=== PATIENT | male | born 1945 | race Caucasian/White ===

== ENCOUNTER 2018-08-04 15:27 | Outpatient (CLI) | payer MEDICARE, BC ==
--- NOTE | 2018-08-04 17:37 | MRI ---
MRI LUMBAR SPINE NONCONTRAST: 08/04/18 HISTORY: Low back pain with right leg radiculopathy. FINDINGS: The conus medullaris has a normal appearance. Desiccation of all of the intervertebral discs. Moderat e multilevel discogenic end plate changes within the bone marrow. Motion artifact obscures detail. T12-L1: Mild disc bulge. Osteophytosis of the facets. Central canal and neural foramina are patent. L1-L2: Mild disc space narrowing. Mild disc bulge. Circumferential degenerative changes with mild luis fernando nosis of the central canal and each neural foramen. L2-3: Mild disc space narrowing. Posterior disc bulge and circumferential degenerative changes. Moder ate stenosis of the central canal and each neural foramen. L3-4: Disc space narrowing. Posterior disc bulge. Circumferential degenerative changes with severe st enosis of the central canal. Moderate to severe stenosis of each neural foramen. L4-5: Disc space narrowing. Minimal degenerative spondylolisthesis. Posterior disc bulge. Circumferen tial degenerative changes with very severe stenosis of the central canal and severe stenosis of each neural foramen. L5-S1: Mild disc space narrowing. Posterior disc bulge. Thecal sac is patent. Prominent degenerative changes with severe bilateral foraminal stenoses. IMPRESSION: Prominent multilevel degenerative changes throughout the lumbar spine as detailed above. Central margi l stenoses most severe at the L4-5 level. Foraminal stenoses most severe at the lowest two levels. POS: [facility]
== END 2018-08-04 15:28 | disposition home or self-care (01) ==
LOC: TBSIIMAG 15:27
PROVIDERS: ATTEND Orthopaedic Surgery
DX: M25.361 Other instability, right knee (principal); M47.816 Spondylosis without myelopathy or radiculopathy, lumbar region; M48.061 Spinal stenosis, lumbar region without neurogenic claudication
CPT/HCPCS: 72148

== ENCOUNTER 2018-12-17 09:35 | Outpatient (CLI) | payer MEDICARE, BC ==
[2018-12-17 11:43] LABS: Hemoglobin 14.5 g/dL (14.0-18.0); Mean Corpuscular HGB CONC 32.6 g/dL (32.0-36.0); Mean Corpuscular Hemoglobin 31.1 pg (27.0-31.0); Mean Corpuscular Volume 95.4 fL (78.0-98.0); Mean Platelet Volume 5.9 fL (7.4-10.4); Platelet Count 274 thou/uL (130-400); RBC Distribution Width 12.8 % (11.5-14.5); Red Blood Cell (RBC) Count 4.65 mill/uL (4.70-6.10); White Blood Cell (WBC) Count 4.8 thou/uL (4.8-10.8)
[2018-12-17 11:46] LABS: INR-International Normal Ratio 0.9; PTT 27.7 SEC (22.9-36.1); Prothrombin Time 12.6 SEC (12.0-14.7)
[2018-12-17 12:07] LABS: Anion Gap 13 mmol/L (10-20); BUN (Urea Nitrogen) 13 mg/dL (8.4-25.7); Calc. Creatinine Clearance 0 mL/min (70-130); Calcium 9.6 mg/dL (7.8-10.44); Carbon Dioxide 26 mmol/L (23-31); Chloride 105 mmol/L (98-107); Estimated GFR-MDRD Greater than 90; Glucose 94 mg/dL (83-110); Potassium 4.5 mmol/L (3.5-5.1); Sodium 139 mmol/L (136-145)
== END 2018-12-17 09:36 | disposition home or self-care (01) ==
LOC: LABBT 09:35
PROVIDERS: ATTEND Surgery
DX: Z01.812 Encounter for preprocedural laboratory examination (principal); M48.061 Spinal stenosis, lumbar region without neurogenic claudication
CPT/HCPCS: 80048; 85027; 85610; 85730

== ENCOUNTER 2018-12-24 05:58 | Day surgery (SDC) | payer MEDICARE, BC ==
[2018-12-24] MEDS ORDERED: Thrombin 5000 UNITS/5 ML VIAL ONE ×2 (06:34→10:03)
[2018-12-24] MEDS ORDERED: Sodium Chloride 0.9% 10 ML ONE (06:34)
[2018-12-24] MEDS ORDERED: Fentanyl 100 MCG/2 ML VIAL ONE ×6 (07:22→14:10)
[2018-12-24] MEDS ORDERED: Levofloxacin 500 mg/D5W 100 ml Premix Bag ONE (07:23)
[2018-12-24] MEDS ORDERED: Clindamycin/D5W 900 mg/50 ml Premix Bag ONE (07:23)
[2018-12-24] MEDS ORDERED: Albumin 5% 500 ML ONE (10:14)
[2018-12-24] MEDS ORDERED: Meperidine HCl/PF 25 MG/ML VIAL SLOW IVP PRN (10:44)
[2018-12-24] MEDS ORDERED: PACU-Morphine 4MG/ML VIAL SLOW IVP PRN (10:44)
[2018-12-24] MEDS ORDERED: HYDROmorphone 2 MG/ML VIAL SLOW IVP PRN (10:44)
[2018-12-24] MEDS ORDERED: Promethazine HCl 25 MG/ML VIAL IM PRN (10:44)
[2018-12-24] MEDS ORDERED: Promethazine HCl 25 MG/ML VIAL SLOW IVP PRN (10:44)
[2018-12-24] MEDS ORDERED: Morphine Sulfate 2 MG/ML SYRINGE SLOW IVP PRN (10:44)
[2018-12-24] MEDS ORDERED: Ondansetron HCl/PF 4 MG/2 ML Vial IVP PRN (10:44)
[2018-12-24] MEDS ORDERED: Morphine 4 MG/ML VIAL SLOW IVP PRN (12:09)
[2018-12-24] MEDS ORDERED: Fleet Enema 133 ML BOT PR PRN (12:09)
[2018-12-24] MEDS ORDERED: Milk Of Magnesia 30 ML UDCUP PO PRN (12:09)
[2018-12-24] MEDS ORDERED: Bisacodyl 10 MG SUPP PR PRN (12:09)
[2018-12-24] MEDS ORDERED: Promethazine HCl 25 MG/ML VIAL IM/IV PRN (12:09)
[2018-12-24] MEDS ORDERED: Mag-Al 1200 mg/1200 mg/30 ML UDCUP PO PRN (12:09)
[2018-12-24] MEDS ORDERED: Acetaminophen 325 MG TAB PO PRN (12:09)
[2018-12-24] MEDS: Sodium Chloride 0.9% 1,000 ML IV SCH (13:18)
[2018-12-24 15:29] VITALS: BMI 36.8
[2018-12-24] MEDS: Clindamycin/D5W 900 MG in Premix Bag 1 BAG IVPB SCH ×2 (16:32→23:34)
[2018-12-24] MEDS: HYDROcodone/Acetaminophen 7.5/325 mg Tablet PO PRN ×2 (18:00→23:32)
[2018-12-24] MEDS: tiZANidine HCl 4 MG TAB PO PRN (18:02)
[2018-12-24] MEDS: Ezetimibe 10 MG TAB PO SCH (20:22)
[2018-12-24] MEDS: Losartan 25 MG TAB PO SCH (20:22)
[2018-12-24] MEDS: Atorvastatin Calcium 40 MG TAB PO SCH (20:22)
[2018-12-24] MEDS: Acetaminophen/Codeine 30-300mg Tablet PO PRN (21:22)
[2018-12-25] MEDS: Sodium Chloride 0.9% 1,000 ML IV SCH ×2 (01:09→18:04)
[2018-12-25] MEDS: traMADol HCl 50 MG TAB PO PRN (02:58)
[2018-12-25] MEDS: Acetaminophen/Codeine 30-300mg Tablet PO PRN ×2 (02:59→20:21)
[2018-12-25] MEDS: HYDROcodone/Acetaminophen 7.5/325 mg Tablet PO PRN ×4 (05:01→21:59)
[2018-12-25 05:57] LABS: Hemoglobin 11.1 g/dL (14.0-18.0); Platelet Count 208 thou/uL (130-400)
--- NOTE | 2018-12-25 08:23 | OP ---
DATE OF PROCEDURE: 12/24/2018 LOCATION: OR 12. GUIDE DOMESTIC TOUR: Edwige. CHIEF COMPLAINT: Multilevel lumbar stenosis with low back and leg pain. POSTPROCEDURE DIAGNOSIS: Multilevel lumbar stenosis with low back and leg pain. PROCEDURES PERFORMED: L1-L2, L2-L3, L3-L4, L4-L5, L5-S1 laminectomies, partial facetectomies, and foraminotomies over L1, L2, L3, L4, L5, and S1 nerve roots bilaterally. DESCRIPTION OF PROCEDURE: After informed consent was obtained from the patient, the patient was brought to the OR. Proper patient, pause, and identification were carried out. He was then placed under excellent general endotracheal anesthesia and positioned prone on the OR table. All appropriate points were padded. We identified the L1 all the way down to S1 dorsal spines and lamina, and a linear parviz was made over this area. This region was sterilely cleansed, prepared, and draped. Proper patient, pause, and identification were carried out. The wound was then opened with combination of sharp, monopolar, and blunt dissection. We exposed the L1, L2, L3, L4, L5, and S1 dorsal spines and lamina, and localization film confirmed our area of interest. We then performed L1, L2, L3, L4, L5, and S1 laminectomies, partial facetectomies, and foraminotomies with excellent decompression of common dural tube and the nerve roots. Copious irrigation occurred throughout as did maximizing hemostasis. The wound was then closed in anatomic layers following sprinkling of the vancomycin powder. The patient was then emerged from anesthesia. Job ID: [id number]
--- NOTE | 2018-12-25 10:53 | PRG ---
DATE OF SERVICE: 12/25/2018 This is Alf Gibbons PA-C dictating a report for Arron Cohen MD. This is a postoperative recheck. Mr. Perez is now postoperative day #1 having undergone multilevel lumbar laminectomies. The patient states overall he is doing well. He is walking much better and states that he has no leg pain. He does have some incisional back pain. In order to help improve his mobility, he requires an another overnight stay in the hospital. He will likely meet criteria for discharge tomorrow. Today, he has good strength in his bilateral lower extremities with intact sensation to light touch throughout. Physical therapy will come by to work with the patient again to improve his mobility. He is doing very well in regard to his pain control, and both he and his were pleased with his outcome postoperatively. His prescriptions have been sent electronically to his Pharmacy. We will plan for discharge tomorrow. Job ID: [id number]
[2018-12-25] MEDS: tiZANidine HCl 4 MG TAB PO PRN ×2 (14:06→22:00)
[2018-12-25] MEDS: Losartan 25 MG TAB PO SCH (20:18)
[2018-12-25] MEDS: Atorvastatin Calcium 40 MG TAB PO SCH (20:18)
[2018-12-25] MEDS: Ezetimibe 10 MG TAB PO SCH (20:18)
[2018-12-26] MEDS: HYDROcodone/Acetaminophen 7.5/325 mg Tablet PO PRN (03:19)
[2018-12-26] MEDS: Sodium Chloride 0.9% 1,000 ML IV SCH (05:20)
[2018-12-26] MEDS: tiZANidine HCl 4 MG TAB PO PRN (06:34)
--- NOTE | 2018-12-26 09:52 | DIS ---
DATE OF ADMISSION: 12/24/2018 DATE OF DISCHARGE: 12/26/2018 Mr. Perez is a 73-year-old man admitted by Dr. Arron Cohen to [facility] on 12/24/2018 and was subsequently discharged on 12/26/2018. ADMISSION DIAGNOSIS: Status post lumbar laminectomy. DISCHARGE DIAGNOSIS: Status post lumbar laminectomy. HOSPITAL COURSE: Mr. Perez did very well during the course of his stay with early limited mobility that progressed rather rapidly. Consults for physical therapy. No other lab work or imaging studies were done. He was discharged in good condition to home with outpatient followup planned. Job ID: [id number]
[2018-12-26] MEDS: traMADol HCl 50 MG TAB PO PRN (11:18)
[2018-12-26 12:09] VITALS: BP 169/80; TEMP 99.1
== END 2018-12-26 13:24 | disposition home or self-care (01) ==
LOC: SDC 05:58 → SJJU 13:11 → SDC 12-26 13:24
PROVIDERS: ATTEND Surgery
PROC: 01NB0ZZ Release Lumbar Nerve, Open Approach (ICD-10-PCS; principal; 2018-12-24)
DX: M48.061 Spinal stenosis, lumbar region without neurogenic claudication (principal); I25.110 Atherosclerotic heart disease of native coronary artery with unstable angina pectoris; I10 Essential (primary) hypertension; E78.00 Pure hypercholesterolemia, unspecified; E66.9 Obesity, unspecified; Z68.36 Body mass index [BMI] 36.0-36.9, adult; Z79.82 Long term (current) use of aspirin; Z79.899 Other long term (current) drug therapy; Z88.0 Allergy status to penicillin; Z95.5 Presence of coronary angioplasty implant and graft
CPT/HCPCS: 63047; 63048 ×4; 76000; 85014; 85018; 85049; 94640; 97110; 97116; 97139 ×3; P9045; 36415; J0131; J1956; J2270; J3010; J3370; J3490; J7620

== ENCOUNTER 2019-08-16 10:07 | Outpatient (CLI) | payer MEDICARE, BC ==
--- NOTE | 2019-08-16 13:24 | MRI ---
CERVICAL SPINE MRI WITHOUT CONTRAST: HISTORY: Neck pain and headache. COMPARISON: None. FINDINGS: Cervical fusion changes at C6-C7 with associated metallic susceptibility artifact. Straightening of cervical lordosis may be due to patient position, muscle spasm, or cervical fusion. No significant S TIR hyperintensity to suggest vertebral body edema or ligamentous injury. Visualized brain parenchym a, cervicomedullary junction, cervical cord, and the upper thoracic cord have a normal size and signa l intensity. C2-C3: No significant central canal stenosis. Mild bilateral foraminal narrowing due to uncovertebr al hypertrophy. C3-C4: Broad-based disk bulge abuts the thecal sac. Mild central canal stenosis. Mild to moderate bilateral foraminal narrowing due to uncovertebral hypertrophy. C4-C5: Broad-based disk bulge abuts the thecal sac. Mild central canal stenosis. Right neural fora men is patent. Mild left foraminal narrowing due to uncovertebral hypertrophy. C5-C6: Broad-based disk-osteophyte complex abuts the thecal sac. Subarachnoid space of the face. T here is deformity of the cervical cord without cord signal abnormality. Moderate central canal steno sis. Moderate bilateral foraminal narrowing due to uncovertebral hypertrophy. C6-C7: No significant central canal stenosis. Neural foramen are patent. C7-T1: No significant central canal stenosis. Neural foramen are patent. IMPRESSION: 1. Cervical fusion at C6-C7. 2. Moderate central canal stenosis and moderate bilateral foraminal narrowing at C5-C6. 3. Degenerative change at C3-C4 as described above. POS: [facility]
== END 2019-08-16 10:08 | disposition home or self-care (01) ==
LOC: TBSIIMAG 10:07
PROVIDERS: ATTEND Family Medicine
DX: M47.22 Other spondylosis with radiculopathy, cervical region (principal); M48.02 Spinal stenosis, cervical region; Z98.1 Arthrodesis status
CPT/HCPCS: 72141

== ENCOUNTER 2019-08-31 08:33 | Outpatient (CLI) | payer MEDICARE, BC ==
--- NOTE | 2019-08-31 09:26 | CT ---
EXAM: CT cervical spine PROVIDED CLINICAL HISTORY: Cervical radiculopathy. History of prior cervical spine surgery 20 years ago. TECHNIQUE: Contiguous axial CT images are obtained through the cervical spine from the skull base to the T2 leve l. Sagittal and coronal reformatted images are provided. COMPARISON: MRI cervical spine 08/16/2019 FINDINGS: Anterior metallic plate and screws transfix the C6-7 level. No hardware complication is visualized. N o fracture or subluxation is seen involving the cervical spine. No prevertebral soft tissue swelling apparent. C2-3 level: Mild facet hypertrophic changes are seen bilaterally. Mild disc osteophyte complex is pre sent with slight effacement of ventral subarachnoid space. There is no significant bony encroachment on the neural foramina. C3-4 level: Prominent facet hypertrophic changes are present this level. There is a broad-based disc osteophyte complex present. There is mild narrowing of the central spinal canal with mild to moderate right and mild left-sided neural foraminal narrowing. C4-5 level: Mild facet hypertrophic changes are present. Mild disc osteophyte complex is present. Thi s does appear to result in effacement of the ventral subarachnoid space. There is mild left-sided neural foraminal narrowing. The right neural foramen is patent. C5-6 level: There is loss of intervertebral disc height. There is a broad-based disc osteophyte compl ex which results in moderate central canal narrowing. There is also moderate bilateral neural foraminal narrowing greater on the right. C6-7 level: No significant bony encroachment on the central spinal canal or neural foramina. There is artifact through this region due to patient's right glenohumeral prosthesis which limits evaluation. C7-T1 level: There is no bony encroachment seen involving the central spinal canal or neural foramina . Visualized lung apices appear clear. IMPRESSION: 1. Postoperative and degenerative changes of the cervical spine with evidence of anterior cervical fu yandy at C6-7 level. 2. Moderate central spinal canal and bilateral neural foraminal narrowing at the C5-6 level. 3. Bilateral neural foraminal narrowing at the C3-4 level.
--- NOTE | 2019-08-31 09:26 | RAD ---
CERVICAL SPINE 5 VIEWS INCLUDING FLEXION AND EXTENSION LATERAL VIEWS: HISTORY: Radiculopathy. FINDINGS: C6, C7, and T1 are at least partially obscured on the lateral view. Odontoid and C1 are partially ob scured on the AP open mouth view. Anterior cervical fusion changes at C6-C7. No prevertebral soft t issue swelling. No abnormal translation between flexion and extension. IMPRESSION: Significant generalized spondylosis. Anterior cervical fusion changes at C6 and C7. POS: [facility]
== END 2019-08-31 08:34 | disposition home or self-care (01) ==
LOC: TBSIIMAG 08:33
PROVIDERS: ATTEND Physician Assistant Surgical
DX: M48.02 Spinal stenosis, cervical region (principal); M47.22 Other spondylosis with radiculopathy, cervical region; Z98.1 Arthrodesis status
CPT/HCPCS: 72050; 72125

== ENCOUNTER 2019-09-24 14:58 | Observation (INO) | payer MEDICARE, BC ==
--- NOTE | 2019-09-24 15:15 | RAD ---
XR Chest Pa Lat STANDARD HISTORY: Chest pain COMPARISON: 04/17/2010 FINDINGS: The heart size is borderline. The lungs are well expanded without focal areas of consolidat ion, pneumothorax or pleural effusions. Postop changes in the lower cervical spine in the right shoulder. There are degenerative changes spin e. IMPRESSION: No radiographic evidence of acute cardiopulmonary process.
[2019-09-24 16:13] LABS: #Basophils 0.1 thou/uL (0.0-0.2); #Lymphocytes 1.4 thou/uL (1.20-3.40); #Monocytes 0.7 thou/uL (0.11-0.59); #Neutrophils 4.8 thou/uL (1.40-6.50); %Basophils 0.8 % (0.0-1.0); %Eosinophils 0.3 % (0.0-10.0); %Lymphocytes 19.9 % (21.0-51.0); %Monocytes 9.5 % (0.0-10.0); %Neutrophils 69.5 % (42.0-75.0); Hemoglobin 14.1 g/dL (14.0-18.0); Mean Corpuscular HGB CONC 33.3 g/dL (32.0-36.0); Mean Corpuscular Hemoglobin 31.4 pg (27.0-31.0); Mean Corpuscular Volume 94.4 fL (78.0-98.0); Mean Platelet Volume 5.7 fL (7.4-10.4); Platelet Count 255 thou/uL (130-400); RBC Distribution Width 12.3 % (11.5-14.5); Red Blood Cell (RBC) Count 4.48 mill/uL (4.70-6.10); White Blood Cell (WBC) Count 6.9 thou/uL (4.8-10.8)
[2019-09-24 16:33] LABS: ALT (SGPT) 18 U/L (8-55); AST (SGOT) 14 U/L (5-34); Albumin 4.2 g/dL (3.4-4.8); Alkaline Phosphatase 72 U/L (40-110); Anion Gap 12 mmol/L (10-20); BUN (Urea Nitrogen) 18 mg/dL (8.4-25.7); Bilirubin, Total 0.4 mg/dL (0.2-1.2); CK (CPK) 101 U/L (30-200); Calc. Creatinine Clearance 0 mL/min (70-130); Carbon Dioxide 26 mmol/L (23-31); Chloride 107 mmol/L (98-107); Estimated GFR-MDRD Greater than 90; Glucose 92 mg/dL (83-110); Protein, Total 7.2 g/dL (5.8-8.1); Sodium 141 mmol/L (136-145)
[2019-09-24] MEDS ORDERED: Ondansetron PF 4 MG/2 ML Vial IVP PRN (21:04)
[2019-09-24] MEDS ORDERED: Senokot S 8.6-50 MG TAB PO PRN (21:04)
[2019-09-24] MEDS ORDERED: Nitroglycerin 0.4 MG TAB (25 Tab Bottle) PO PRN (21:04)
[2019-09-24] MEDS ORDERED: Acetaminophen 325 MG TAB PO PRN (21:04)
[2019-09-24 21:58] LABS: Troponin I Less than 0.010 ng/mL (< 0.028)
[2019-09-24 22:47] VITALS: BMI 36.7
[2019-09-25 01:01] LABS: Troponin I Less than 0.010 ng/mL (< 0.028)
[2019-09-25 05:35] LABS: #Basophils 0.1 thou/uL (0.0-0.2); #Lymphocytes 1.6 thou/uL (1.20-3.40); #Monocytes 0.6 thou/uL (0.11-0.59); #Neutrophils 3.2 thou/uL (1.40-6.50); %Basophils 1.3 % (0.0-1.0); %Eosinophils 0.7 % (0.0-10.0); %Lymphocytes 29.2 % (21.0-51.0); %Monocytes 11.2 % (0.0-10.0); %Neutrophils 57.6 % (42.0-75.0); Hemoglobin 13.8 g/dL (14.0-18.0); Mean Corpuscular HGB CONC 33.5 g/dL (32.0-36.0); Mean Corpuscular Hemoglobin 31.7 pg (27.0-31.0); Mean Corpuscular Volume 94.6 fL (78.0-98.0); Mean Platelet Volume 5.8 fL (7.4-10.4); Platelet Count 249 thou/uL (130-400); RBC Distribution Width 12.2 % (11.5-14.5); Red Blood Cell (RBC) Count 4.36 mill/uL (4.70-6.10); White Blood Cell (WBC) Count 5.6 thou/uL (4.8-10.8)
[2019-09-25 06:03] LABS: ALT (SGPT) 15 U/L (8-55); AST (SGOT) 12 U/L (5-34); Albumin 3.8 g/dL (3.4-4.8); Alkaline Phosphatase 66 U/L (40-110); Anion Gap 11 mmol/L (10-20); BUN (Urea Nitrogen) 12 mg/dL (8.4-25.7); Bilirubin, Total 0.7 mg/dL (0.2-1.2); Calc. Creatinine Clearance 142 mL/min (70-130); Calcium 8.9 mg/dL (7.8-10.44); Carbon Dioxide 28 mmol/L (23-31); Chloride 107 mmol/L (98-107); Estimated GFR-MDRD Greater than 90; Globulin 2.8 g/dL (2.4-3.5); Glucose 92 mg/dL (83-110); Potassium 4.2 mmol/L (3.5-5.1); Protein, Total 6.6 g/dL (5.8-8.1); Sodium 142 mmol/L (136-145)
[2019-09-25] MEDS ORDERED: Nitroglycerin 0.4 MG TAB (25 Tab Bottle) PO PRN (07:29)
--- NOTE | 2019-09-25 07:58 | HP ---
PRIMARY CARE PROVIDER: Tiffanie Becker MD GAS APPLIANCE REPAIRER: Hari Suggs MD HISTORY OF PRESENT ILLNESS: The patient presented to the emergency department with lower left anterior chest pain, feeling like electrical shock happened 24 hours before he presented to the emergency room. Had some nausea, some lightheadedness. No radiation. No shortness of breath. The next day, he felt better, and then it happened again in the afternoon, not quite so bad. He presented to the emergency room, was evaluated, and referred him for chest pain. He had another small spell during the night. PAST MEDICAL HISTORY: Pertinent for hypertension, elevated cholesterol, coronary artery disease, post PCI 7 years ago. CURRENT MEDICATIONS: 1. Aspirin 81 mg a day. 2. Atorvastatin 40 mg a day. 3. Vitamin B12 p.o. daily. 4. Vitamin D2 p.o. daily. 5. Zetia 10 mg a day. 6. Losartan 25 mg a day. ALLERGIES: TO PENICILLINS AND ROCEPHIN, CAUSES URTICARIA. PAST SURGICAL HISTORY: He has had C-spine surgery, L-spine surgery, total knee replacement on the left, arthroscopic knee surgery on the right, a left shoulder surgery. He is post cholecystectomy. FAMILY HISTORY: He has a brother, who is incidentally a money order clerk, who has had a coronary artery bypass graft. His mother of congestive heart failure. His father of a bleeding brain aneurysm. SOCIAL HISTORY: He is . Full code status. is surrogate decision maker. No tobacco. Drinks approximately 6 to 8 beers a week. REVIEW OF SYSTEMS: GENERAL: He has some headaches, tightness in his neck, worse with turning his neck. He is seeing Dr. Cohen. He has had shots in his neck per Dr. Rebolledo. No dizziness or fainting currently. EYES: He has a roaming eye on the right. No double vision, blurred vision. EARS, NOSE, AND THROAT: No ear pain or drainage. No nasal bleeding. No trouble swallowing. CARDIAC: No orthopnea, paroxysmal nocturnal dyspnea, or pressure chest pain. RESPIRATIONS: He had childhood asthma. No recurrences in adult. No cough, wheezing, or asthma. GASTROINTESTINAL: Some nausea with present illness. Otherwise, no vomiting, no abdominal pain, diarrhea, constipation, or melena. GENITOURINARY: He has frequency and nocturia. No hematuria. MUSCULOSKELETAL: He states his ankles swell. NEUROLOGICAL: No strokes, seizures, or focal weakness. PSYCHIATRIC: No anxiety or depression. SKIN: No bruising, bleeding, or rash. HEME/LYMPH: No tender or swollen lymph nodes in axilla, inguinal, or cervical area. PHYSICAL EXAMINATION: GENERAL: He is alert, oriented, cooperative gentleman, in no distress. VITAL SIGNS: Blood pressure 133/59, pulse 55, respirations 16, temperature 97.6. HEAD, EYES, EARS, NOSE, AND THROAT: Revealed pupils are equal and reactive. He does have some drifting of his right eye on extraocular movements, which he states is chronic. Sclerae are white. Tympanic membranes are clear. Nose clear. Oral mucous membranes are wet. Dental hygiene is good. NECK: Supple without jugular venous distention, adenopathy or thyromegaly. CHEST: Clear to auscultation and percussion. HEART: Regular rate and rhythm. First and second heart sounds are clear. There are no appreciated murmurs or gallops. ABDOMEN: Soft. Bowel sounds are normal. There is no hepatosplenomegaly. No mass. No rebound. No bruits. EXTREMITIES: Reveal trace edema with no cyanosis or clubbing. PULSES: Carotid, radial, femoral, and dorsalis pedis pulses intact. SKIN: Warm and dry without bruises or rash. HEME/LYMPH: No tender or swollen lymph nodes in axilla, inguinal, or cervical area. NEUROLOGICAL: He has a dysconjugate movement on his right eye, which is chronic. Cranial nerves 2 through 12 otherwise intact. Moves all extremities. Sensations intact. CARDIOVASCULAR STUDIES: EKG; regular sinus rhythm. No ST-T abnormality. Personally reviewed. IMAGING STUDIES: Chest x-ray; personally reviewed by me reveals no cardiomegaly, CHF, or infiltrate. Lung woodard clear. LABORATORY STUDIES: Troponins normal x3. Comp metabolic profile, normal x2. CBC, normal x2, except for a mild decrease hemoglobin of 13.8 on the second one. ADMITTING DIAGNOSES: Atypical chest pain, history of coronary artery disease, post percutaneous coronary intervention, hypertension, dyslipidemia. PLAN: Aspirin. Continue home medicines. Exercise Cardiolite stress test. Job ID: [id number]
[2019-09-25] MEDS ORDERED: Heparin 5,000 UNITS/ML VIAL SC SCH (09:00)
[2019-09-25] MEDS ORDERED: Cyanocobalamin (Vitamin B-12) 1,000 MCG TAB PO SCH (09:00)
[2019-09-25] MEDS ORDERED: Ezetimibe 10 MG TAB PO SCH (09:00)
[2019-09-25] MEDS ORDERED: Atorvastatin Calcium 40 MG TAB PO SCH (09:00)
[2019-09-25] MEDS ORDERED: Losartan 25 MG TAB PO SCH (09:00)
[2019-09-25] MEDS ORDERED: ERGOCALCIFEROL 2000 UNIT PO SCH (09:00)
[2019-09-25] MEDS ORDERED: Aspirin 325 mg Enteric Coated Tablet PO SCH (09:00)
--- NOTE | 2019-09-25 12:53 | NM ---
EXAM: CARDIAC SPECT HISTORY: Chest pain, stent, hypertension, dyspnea TECHNIQUE: A myocardial perfusion scan was performed using the single isotope 1 day protocol with chevy hnetium 99m sestamibi. [10 mCi] was injected intravenously for the rest exam followed by 30 mCi for the stress study. Pharmacologic stress with adenosine was monitored and interpreted by Dr. Hill FINDINGS: Homogeneous tracer distribution is seen in the myocardial segments on stress and rest image s without fixed or reversible defects. Gated SPECT LVEF: 67% Wall motion exam: Normal IMPRESSION: Normal myocardial perfusion scan
--- NOTE | 2019-09-25 14:05 | EKG ---
Test Reason : Blood Pressure : / mmHG Vent. Rate : 070 BPM Atrial Rate : 070 BPM P-R Int : 202 ms QRS Dur : 090 ms QT Int : 408 ms P-R-T Axes : -02 008 034 degrees QTc Int : 440 ms Normal sinus rhythm Cannot rule out Inferior infarct , age undetermined Abnormal ECG Confirmed by CARLOTTA ECHEVERRIA DO ([id number]), video effects editor BUTCH GARCIA ([id number]) on 09/25/2019 2:05:01 PM Referred By: Confirmed By:CARLOTTA ECHEVERRIA DO
[2019-09-25 16:00] VITALS: BP 136/61; TEMP 98
--- NOTE | 2019-09-25 16:34 | DIS ---
DATE OF ADMISSION: 09/24/2019 DATE OF DISCHARGE: 09/25/2019 PRIMARY CARE PROVIDER: Tiffanie Becker MD DISPOSITION: Discharged to home. FINAL DIAGNOSES: Noncardiac chest pain, coronary artery disease, dyslipidemia, hypothyroidism. DISCHARGE MEDICATIONS: 1. Lipitor 40 mg a day. 2. Losartan 25 mg a day. 3. Zetia 10 mg a day. 4. Aspirin 162.2 mg a day. ALLERGIES: TO PENICILLINS AND CEPHALOSPORINS, BOTH CAUSED HIVES, SHORTNESS OF BREATH. CODE STATUS: Full. PENDING AT TIME OF DISCHARGE: Nothing. DIET: Heart healthy. HOSPITAL COURSE: The patient admitted with atypical left-sided chest pain. EKG was unrevealing. CBC was unremarkable. Cardiac enzymes were normal x3. Comp metabolic profile was normal. A nuclear medicine exercise stress test revealed no reversible ischemia. This was discussed with the patient. He is comfortable with being discharged. He is comfortable with seeing his PCP in 3 days. CONSULTATIONS: None. PROCEDURES: None. Job ID: [id number] [facility]
== END 2019-09-25 16:44 | disposition home or self-care (01) ==
LOC: ERS 14:58 → 2SW 21:05
PROVIDERS: ADMIT Internal Medicine Sleep Medicine; ATTEND Internal Medicine Sleep Medicine
DX: R07.89 Other chest pain (principal); I25.10 Atherosclerotic heart disease of native coronary artery without angina pectoris; E03.9 Hypothyroidism, unspecified; E78.00 Pure hypercholesterolemia, unspecified; E78.5 Hyperlipidemia, unspecified; I10 Essential (primary) hypertension; Z79.82 Long term (current) use of aspirin; Z79.899 Other long term (current) drug therapy; Z88.0 Allergy status to penicillin; Z88.1 Allergy status to other antibiotic agents
CPT/HCPCS: 71046; 78452; 80053 ×2; 82550; 84484 ×3; 85025 ×2; 93005; 93017; 94760 ×2; 99285; A9500; G0378 ×3; 36415; J0153

== ENCOUNTER 2020-01-24 07:00 | Outpatient (CLI) | payer MEDICARE, BC ==
--- NOTE | 2020-01-24 07:34 | ULT ---
Abdominal aortic sonogram with duplex evaluation HISTORY: Aneurysm screening. FINDINGS: Good color and spectral Doppler flow within the abdominal aorta. Proximal abdominal aorta i s 1.8 cm AP diameter. Mid abdominal aorta 2.1 cm. Distal abdominal aorta 1.7 cm. Each common iliac artery is unremarkable. No free fluid. IMPRESSION : No evidence of abdominal aortic aneurysm.
== END 2020-01-24 07:01 | disposition home or self-care (01) ==
LOC: BICULT 07:00
PROVIDERS: ATTEND Family Medicine
DX: Z13.6 Encounter for screening for cardiovascular disorders (principal)
CPT/HCPCS: 76706; 76775

== ENCOUNTER 2023-04-21 19:52 | Observation (INO) | payer MEDICARE, BC ==
[2023-04-21 22:34] VITALS: BMI 33.1
[2023-04-22] MEDS ORDERED: Ondansetron ODT 4 MG TAB PO PRN (00:01)
[2023-04-22] MEDS ORDERED: Ondansetron PF 4 MG/2 ML Vial IVP PRN (00:01)
[2023-04-22] MEDS ORDERED: Acetaminophen 325 MG TAB PO PRN (00:01)
[2023-04-22] MEDS ORDERED: Dextrose 5%-Lactated Ringers 1,000 ML IV SCH (00:15)
[2023-04-22 00:37] LABS: #Monocytes 0.9 thou/uL (0.11-0.59); #Neutrophils 8.4 thou/uL (1.40-6.50); %Basophils 0.4 % (0.0-1.0); %Eosinophils 0.2 % (0.0-10.0); %Lymphocytes 8.4 % (21.0-51.0); %Monocytes 8.6 % (0.0-10.0); Hematocrit 38.3 % (42.0-52.0); Hemoglobin 12.8 g/dL (14.0-18.0); Mean Corpuscular HGB CONC 33.4 g/dL (32.0-36.0); Mean Corpuscular Volume 95.8 fl (78.0-98.0); Mean Platelet Volume 8.1 fL (7.4-10.4); Platelet Count 162 10x3/uL (130-400); RBC Distribution Width 13.4 % (11.5-14.5); White Blood Cell (WBC) Count 10.2 10x3/uL (4.8-10.8)
[2023-04-22 01:01] LABS: ALT (SGPT) 219 U/L (8-55); AST (SGOT) 297 U/L (5-34); Albumin 3.8 g/dL (3.4-4.8); Alkaline Phosphatase 98 U/L (40-110); Anion Gap 13 mmol/L (10-20); BUN (Urea Nitrogen) 11 mg/dL (8.4-25.7); Bilirubin, Total 1.5 mg/dL (0.2-1.2); Calc. Creatinine Clearance 107 mL/min (70-130); Calcium 8.7 mg/dL (7.8-10.44); Carbon Dioxide 25 mmol/L (23-31); Chloride 106 mmol/L (98-107); Estimated GFR 91; Globulin 2.6 g/dL (2.4-3.5); Glucose 107 mg/dL (83-110); Potassium 3.6 mmol/L (3.5-5.1); Protein, Total 6.4 g/dL (5.8-8.1); Sodium 140 mmol/L (136-145)
[2023-04-22] MEDS: Cyanocobalamin (Vitamin B-12) 1,000 MCG TAB PO SCH (08:25)
[2023-04-22] MEDS: Famotidine 20 MG TAB PO SCH ×2 (08:25→21:32)
[2023-04-22] MEDS: Ezetimibe 10 MG TAB PO SCH (08:25)
[2023-04-22] MEDS: Losartan 25 MG TAB PO SCH (08:25)
[2023-04-22] MEDS: Atorvastatin Calcium 40 MG TAB PO SCH (08:25)
[2023-04-22] MEDS: Cholecalciferol 1,000 UNITS (25 MCG) TAB PO SCH (08:25)
[2023-04-22] MEDS: Famotidine/PF 20 mg/2ml Vial SLOW IVP SCH ×2 (08:29→21:44)
[2023-04-22] MEDS: LevoFLOXacin 500 mg/D5W 500 MG in Premix 1 BAG IVPB SCH (10:19)
[2023-04-22] MEDS ORDERED: fentaNYL PF 100 MCG/2 ML SYRINGE ONE (15:06)
[2023-04-22] MEDS ORDERED: SUGAMMADEX SODIUM 200 MG/2 ML VIAL ONE (15:07)
[2023-04-22] MEDS ORDERED: Bupivacaine 0.25% HCL 30 ML VIAL ONE (15:11)
[2023-04-22] MEDS ORDERED: EPINEPHrine 1 MG/ML AMP ONE (15:11)
[2023-04-22] MEDS ORDERED: Dexamethasone 20 MG/5 ML VIAL ONE (15:56)
[2023-04-22] MEDS ORDERED: PROPOFOL 200 MG/20 ML VIAL ONE (15:56)
[2023-04-22] MEDS ORDERED: Lidocaine 1% PF 5 ML VIAL ONE (15:56)
[2023-04-22] MEDS ORDERED: Ondansetron PF 4 MG/2 ML Vial ONE (15:56)
[2023-04-22] MEDS ORDERED: Succinylcholine 200 MG/10 ml SYRINGE FS ONE (15:56)
[2023-04-22] MEDS ORDERED: Rocuronium Bromide 10 MG/ML (10ML VIAL) ONE (15:56)
[2023-04-22] MEDS: metroNIDAZOLE 500 MG in Premix 1 BAG IVPB SCH ×2 (16:10→21:32)
[2023-04-22] MEDS ORDERED: Promethazine HCl 25 MG/ML VIAL IM PRN (17:16)
[2023-04-22] MEDS ORDERED: Ondansetron HCl/PF 4 MG/2 ML Vial IVP PRN (17:16)
[2023-04-22] MEDS ORDERED: traMADol HCl 50 MG TAB PO PRN (17:44)
[2023-04-22] MEDS ORDERED: fentaNYL 50 mcg/mL 1 mL Vial ONE (18:04)
[2023-04-23] MEDS: metroNIDAZOLE 500 MG in Premix 1 BAG IVPB SCH (05:15)
[2023-04-23] MEDS ORDERED: Senokot S 8.6-50 MG TAB PO SCH (09:00)
[2023-04-23] MEDS ORDERED: Polyethylene Glycol 3350 17 GM Packet PO SCH (09:00)
[2023-04-23] MEDS: Cyanocobalamin (Vitamin B-12) 1,000 MCG TAB PO SCH (09:35)
[2023-04-23] MEDS: Losartan 25 MG TAB PO SCH (09:35)
[2023-04-23] MEDS: Cholecalciferol 1,000 UNITS (25 MCG) TAB PO SCH (09:35)
[2023-04-23] MEDS: Atorvastatin Calcium 40 MG TAB PO SCH (09:35)
[2023-04-23] MEDS: Famotidine/PF 20 mg/2ml Vial SLOW IVP SCH (09:36)
[2023-04-23] MEDS: Ezetimibe 10 MG TAB PO SCH (09:36)
[2023-04-23] MEDS: LevoFLOXacin 500 mg/D5W 500 MG in Premix 1 BAG IVPB SCH ×2 (09:36→09:50)
[2023-04-23] MEDS: Famotidine 20 MG TAB PO SCH (09:36)
[2023-04-23 10:35] VITALS: BP 125/72; TEMP 97.9
== END 2023-04-23 12:05 | disposition home or self-care (01) ==
LOC: SURG B 21:59
PROVIDERS: ADMIT Student in an Organized Health Care Education/Training Program; ATTEND Internal Medicine
PROC: 0DTJ4ZZ Resection of Appendix, Percutaneous Endoscopic Approach (ICD-10-PCS; principal; 2023-04-22)
DX: K35.30 Acute appendicitis with localized peritonitis, without perforation or gangrene (principal); I10 Essential (primary) hypertension; E78.5 Hyperlipidemia, unspecified; I25.10 Atherosclerotic heart disease of native coronary artery without angina pectoris; R74.01 Elevation of levels of liver transaminase levels; Z95.5 Presence of coronary angioplasty implant and graft; Z96.653 Presence of artificial knee joint, bilateral; Z90.49 Acquired absence of other specified parts of digestive tract; Z88.1 Allergy status to other antibiotic agents
CPT/HCPCS: 44970; 76705; 80053; 83690; 85025; 96365; 96366; 96367; G0378 ×2; J3010; 36415; 88304; J0171; J1100; J1956; J2405; J2704; S0020